=== PATIENT | male | born 2000 | race African-American/Black ===

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

== ENCOUNTER 2022-03-11 09:31 | Emergency (ER) | payer MEDICAID ==
[~2022-03-11] VITALS: Ht 167.6 cm; Wt 61.0 kg
[~2022-03-11 09:31] MED LIST: IBUP-2029 MT
[2022-03-11] MEDS ORDERED: IBUPROFEN 600MG TABLET PO ONE (10:00)
[2022-03-11 10:07] VITALS: BP 127/70
[2022-03-11] MEDS ORDERED: IBUP-2028 MT (10:19)
== END 2022-03-11 10:44 | disposition home or self-care (01) ==
LOC: ER 09:35
DX: S29.012A Strain of muscle and tendon of back wall of thorax, initial encounter (principal); S16.1XXA Strain of muscle, fascia and tendon at neck level, initial encounter; V43.52XA Car driver injured in collision with other type car in traffic accident, initial encounter; Y93.89 Activity, other specified; Y92.410 Unspecified street and highway as the place of occurrence of the external cause
CPT/HCPCS: 99282

== ENCOUNTER 2023-11-05 16:33 | Emergency (ER) | payer MEDICAID ==
[~2023-11-05] VITALS: Ht 167.6 cm; Wt 59.0 kg
[~2023-11-05 16:33] MED LIST changes: +IBUP-2028 MT
[2023-11-05 16:58] VITALS: O2SAT 98
[2023-11-05] MEDS ORDERED: ACET-2708 MT (19:54)
[2023-11-05] MEDS ORDERED: IBUP-2028 MT (19:55)
[2023-11-05] MEDS ORDERED: ACETAMINOPHEN 325MG TABLET PO ONE (20:00)
[2023-11-05] MEDS ORDERED: IBUPROFEN 400MG TABLET PO ONE (20:00)
[2023-11-05 20:03] VITALS: BP 125/76; PULSE 77; RESP 16; TEMP 98.2
== END 2023-11-05 20:05 | disposition home or self-care (01) ==
LOC: ER 16:33
DX: S42.401A Unspecified fracture of lower end of right humerus, initial encounter for closed fracture (principal); W18.39XA Other fall on same level, initial encounter; Y93.89 Activity, other specified; Y92.89 Other specified places as the place of occurrence of the external cause; Y99.8 Other external cause status
CPT/HCPCS: 73080; 73090; 73110; 29105; 99284; Z7610; A4565